=== PATIENT | male | born 1985 | race Caucasian/White ===

== ENCOUNTER 2020-01-11 23:06 | Emergency (ER) | payer MEDICAID ==
[~2020-01-11] VITALS: Ht 170.2 cm; Wt 81.8 kg
[~2020-01-11 23:06] MED LIST: PAIN MED
[2020-01-11] MEDS ORDERED: IBUPROFEN 600 MG TABLET PO ONE (23:30)
[2020-01-12 01:31] VITALS: BP 103/61
== END 2020-01-12 01:59 | disposition home or self-care (01) ==
LOC: EMS 23:08
DX: S62.521A Displaced fracture of distal phalanx of right thumb, initial encounter for closed fracture (principal); Y04.0XXA Assault by unarmed brawl or fight, initial encounter; Y93.89 Activity, other specified; Y92.89 Other specified places as the place of occurrence of the external cause; Y99.8 Other external cause status